=== PATIENT | male | born 1935 | race Caucasian/White ===

== ENCOUNTER 2019-01-20 20:33 | Inpatient (IN) | payer MEDICARE, BC ==
[~2019-01-20] VITALS: Ht 177.8 cm; Wt 96.9 kg
[2019-01-22 13:05] VITALS: BP 132/63
== END 2019-01-22 17:18 | disposition home or self-care (01) | DRG 65 ==
LOC: ED 21:25 → EDIP 21:39 → 4WST 22:34 → DCLOUNGE 01-22 17:01
PROVIDERS: ADMIT Internal Medicine; ATTEND Internal Medicine
DX: I63.9 Cerebral infarction, unspecified (principal); G45.0 Vertebro-basilar artery syndrome; R26.89 Other abnormalities of gait and mobility; I35.0 Nonrheumatic aortic (valve) stenosis; R29.810 Facial weakness; Z82.3 Family history of stroke; Z87.891 Personal history of nicotine dependence
CPT/HCPCS: 36415; 70496; 70498; 70551; 80048; 80061; 85025; 93306; 99285; G0378; Q9967; 92523-GN; J7030

== ENCOUNTER 2019-01-26 09:17 | Emergency (ER) | payer MEDICARE, BC ==
[~2019-01-26] VITALS: Ht 177.8 cm; Wt 87.4 kg
[2019-01-26 11:07] VITALS: BP 150/65
== END 2019-01-26 12:26 | disposition home or self-care (01) ==
LOC: ED 10:41
DX: I35.0 Nonrheumatic aortic (valve) stenosis (principal); Z86.73 Personal history of transient ischemic attack (TIA), and cerebral infarction without residual deficits; Z90.49 Acquired absence of other specified parts of digestive tract; Z87.891 Personal history of nicotine dependence; Z79.899 Other long term (current) drug therapy
CPT/HCPCS: 36415; 70450; 71045; 80053; 83880; 84484; 85025; 93005; 99284

== ENCOUNTER 2019-02-04 11:16 | Day surgery (SDC) | payer MEDICARE, BC ==
[~2019-02-04] VITALS: Ht 177.8 cm; Wt 86.0 kg
[~2019-02-04 11:16] MED LIST: ASPI81TA45 PO; ATOR40TA78 PO; SODIUM CHLORIDE 0.9% 1,000 ML IV SCH
[2019-02-04 12:37] VITALS: BP 147/77
[2019-02-04] MEDS ORDERED: VERAPAMIL 2.5 MG/ML, 2ML ONE (14:07)
[2019-02-04] MEDS ORDERED: FENTANYL PF 100 MCG/2ML ONE (14:07)
[2019-02-04] MEDS ORDERED: LIDOCAINE 1%, 20ML ONE (14:07)
[2019-02-04] MEDS ORDERED: MIDAZOLAM 1 MG/ML, 2ML ONE (14:07)
[2019-02-04] MEDS ORDERED: HEPARIN 1,000 UNITS/ML, 10ML ONE (14:07)
[2019-02-04] MEDS ORDERED: SODIUM CHLORIDE 0.9% 1,000 ML IV SCH (15:05)
[2019-03-11] MEDS ORDERED: TICA90TA PO (08:26)
[2019-03-11] MEDS ORDERED: METO25TA2 PO (08:26)
== END 2019-02-04 16:46 | disposition home or self-care (01) ==
LOC: CACL 11:16
PROVIDERS: ATTEND Internal Medicine Cardiovascular Disease
DX: I25.10 Atherosclerotic heart disease of native coronary artery without angina pectoris (principal); I10 Essential (primary) hypertension; I35.0 Nonrheumatic aortic (valve) stenosis; Z86.73 Personal history of transient ischemic attack (TIA), and cerebral infarction without residual deficits; Z79.82 Long term (current) use of aspirin; Z87.891 Personal history of nicotine dependence
CPT/HCPCS: 92978; 93454; 99156; 99157; C1753; C1769; C1887; J1644; J2250; J3010; Q9967

== ENCOUNTER 2019-03-23 09:14 | Inpatient (IN) | payer MEDICARE, BC ==
[~2019-03-23] VITALS: Ht 177.8 cm; Wt 88.3 kg
[~2019-03-23 09:14] MED LIST changes: +CHLORHEXIDINE 15 ML UDC ONE; +METO25TA2 PO; -SODIUM CHLORIDE 0.9% 1,000 ML IV SCH; +TICA90TA PO
[2019-03-23] MEDS ORDERED: SODIUM CHLORIDE 0.9% 1,000 ML IV ONE (09:37)
[2019-03-23 09:47] VITALS: BP 179/86
[2019-03-23] MEDS ORDERED: ONDANSETRON 2MG/ML, 2ML IVPush PRN ×2 (10:00→12:30)
[2019-03-23] MEDS ORDERED: CHLORHEXIDINE 15 ML UDC MM PRN (10:00)
[2019-03-23 10:24] LABS: BASOPHILS # (AUTO) 0.02 x10^3/uL (0-0.1); BASOPHILS % (AUTO) 0 % (0-1); EOSINOPHILS # (AUTO) 0.13 x10^3/uL (0-0.4); EOSINOPHILS % (AUTO) 2 % (1-7); LYMPHOCYTES # (AUTO) 1.21 x10^3/uL (1-3.4); LYMPHOCYTES % (AUTO) 18 % (22-44); MD NO; MEAN CORPUSCULAR HEMOGLOBIN 31.4 pg (27.5-34.5); MEAN CORPUSCULAR HGB CONC 33.6 g/dL (33.2-36.2); MEAN CORPUSCULAR VOLUME 93.4 fL (81-97); MEAN PLATELET VOLUME 7.6 fL (7.4-10.4); MONOCYTES # (AUTO) 0.45 x10^3/uL (0.2-0.8); MONOCYTES % (AUTO) 7 % (2-9); NEUTROPHILS # (AUTO) 4.86 x10^3/uL (1.8-6.8); NEUTROPHILS % (AUTO) 73 % (42-75); PLATELET COUNT 203 x10^3/uL (130-400); RED CELL DISTRIBUTION WIDTH 13.9 % (9.4-14.8)
[2019-03-23 10:32] LABS: INTERNATIONAL NORMALIZED RATIO 1.14 (0.93-1.1); PROTHROMBIN TIME 11.9 Seconds (9.6-11.5)
[2019-03-23 10:35] LABS: ANION GAP 3 mmol/L (5-15); CALCIUM 9.4 mg/dL (8.5-10.1); CHLORIDE 109 mmol/L (98-107)
[2019-03-23 10:41] LABS: CREATININE 1.09 mg/dL (0.7-1.3)
[2019-03-23 10:42] LABS: ALANINE AMINOTRANSFERASE 26 U/L (12-78); ALKALINE PHOSPHATASE 62 U/L (45-117); BILIRUBIN,TOTAL 1.1 mg/dL (0.2-1.0); TOTAL PROTEIN 7.5 g/dL (6.4-8.2)
[2019-03-23] MEDS ORDERED: FENTANYL PF 250 MCG/5ML ONE (11:08)
[2019-03-23] MEDS ORDERED: CEFAZOLIN 1,000 MG ONE (11:19)
[2019-03-23] MEDS ORDERED: DEXAMETHASONE 4 MG/ML, 1ML ONE ×2 (11:19)
[2019-03-23] MEDS ORDERED: PROTAMINE SULFATE 10 MG/ML, 25ML ONE (11:19)
[2019-03-23] MEDS ORDERED: SUCCINYLCHOLINE 20 MG/ML, 10ML ONE (11:44)
[2019-03-23] MEDS ORDERED: ROCURONIUM 10MG/ML,5ML ONE (11:45)
[2019-03-23] MEDS ORDERED: HEPARIN 1,000 UNITS/ML, 10ML ONE (11:45)
[2019-03-23] MEDS ORDERED: PROPOFOL 10 MG/ML, 20ML ONE (11:45)
[2019-03-23] MEDS ORDERED: PHENYLEPHRINE 10 MG/ML ONE (11:45)
[2019-03-23] MEDS ORDERED: ONDANSETRON 2MG/ML, 2ML ONE ×2 (12:18)
[2019-03-23] MEDS ORDERED: hydrALAzine 20 MG/ML, 1ML IVPush PRN (12:30)
[2019-03-23] MEDS ORDERED: ACETAMINOPHEN 325 MG TABLET PO PRN (12:30)
[2019-03-23] MEDS ORDERED: HYDROcodone/APAP 5/325 TABLET PO PRN (12:30)
[2019-03-23] MEDS ORDERED: LABETALOL 20 MG/4 ML IVPush PRN (12:30)
[2019-03-23 14:00] VITALS: BP 127/66
[2019-03-23] MEDS: TICAGRELOR 90 MG TABLET PO SCH (20:25)
[2019-03-23 20:26] VITALS: BP 116/70
[2019-03-23] MEDS ORDERED: METOPROLOL SUCCINATE 25 MG TAB.ER.24H PO SCH (21:00)
[2019-03-23] MEDS ORDERED: ATORVASTATIN 40 MG TABLET PO SCH (21:00)
[2019-03-24 02:00] VITALS: BP 93/56
[2019-03-24 04:13] LABS: BASOPHILS % (AUTO) 0 % (0-1); EOSINOPHILS # (AUTO) 0.22 x10^3/uL (0-0.4); EOSINOPHILS % (AUTO) 2 % (1-7); LYMPHOCYTES # (AUTO) 0.77 x10^3/uL (1-3.4); LYMPHOCYTES % (AUTO) 5 % (22-44); MD NO; MEAN CORPUSCULAR HEMOGLOBIN 31.4 pg (27.5-34.5); MEAN CORPUSCULAR HGB CONC 33.2 g/dL (33.2-36.2); MEAN CORPUSCULAR VOLUME 94.7 fL (81-97); MEAN PLATELET VOLUME 7.7 fL (7.4-10.4); MONOCYTES # (AUTO) 0.84 x10^3/uL (0.2-0.8); MONOCYTES % (AUTO) 6 % (2-9); NEUTROPHILS # (AUTO) 12.92 x10^3/uL (1.8-6.8); NEUTROPHILS % (AUTO) 88 % (42-75); PLATELET COUNT 191 x10^3/uL (130-400); RED BLOOD COUNT 4.73 x10^6/uL (4.38-5.82); RED CELL DISTRIBUTION WIDTH 13.5 % (9.4-14.8)
[2019-03-24 04:22] LABS: ANION GAP 7 mmol/L (5-15); CHLORIDE 109 mmol/L (98-107)
[2019-03-24] MEDS ORDERED: ASPIRIN 81 MG TABLET EC PO SCH (06:00)
[2019-03-24] MEDS: TICAGRELOR 90 MG TABLET PO SCH (08:17)
[2019-03-24 08:30] VITALS: BP 106/55
[2019-03-24 12:30] VITALS: BP 109/54
== END 2019-03-24 20:29 | disposition home or self-care (01) | DRG 266 ==
LOC: ORIP 09:14 → CCU 12:40
PROVIDERS: ADMIT Internal Medicine Cardiovascular Disease; ATTEND Internal Medicine Cardiovascular Disease
PROC: B3101ZZ Fluoroscopy of Thoracic Aorta using Low Osmolar Contrast (ICD-10-PCS; 2019-03-23)
PROC: B24BZZ4 Ultrasonography of Heart with Aorta, Transesophageal (ICD-10-PCS; 2019-03-23)
PROC: 03HY32Z Insertion of Monitoring Device into Upper Artery, Percutaneous Approach (ICD-10-PCS; 2019-03-23)
PROC: 02RF38Z Replacement of Aortic Valve with Zooplastic Tissue, Percutaneous Approach (ICD-10-PCS; principal; 2019-03-23 13:30)
DX: I08.0 Rheumatic disorders of both mitral and aortic valves (principal); Z00.6 Encounter for examination for normal comparison and control in clinical research program; I50.33 Acute on chronic diastolic (congestive) heart failure; D72.823 Leukemoid reaction; E04.1 Nontoxic single thyroid nodule; E78.5 Hyperlipidemia, unspecified; I11.0 Hypertensive heart disease with heart failure; I25.10 Atherosclerotic heart disease of native coronary artery without angina pectoris; R00.1 Bradycardia, unspecified; I44.7 Left bundle-branch block, unspecified; R04.0 Epistaxis; Z88.0 Allergy status to penicillin; Z79.82 Long term (current) use of aspirin; Z86.73 Personal history of transient ischemic attack (TIA), and cerebral infarction without residual deficits; Z95.5 Presence of coronary angioplasty implant and graft
CPT/HCPCS: 33361; 36415; 80048; 80053; 83880; 85025; 85347; 85610; 85730; 86850; 86900; 86923; 87081; 93005; 93306; 93312; 93321; 93325; 93355; 93591; C1760; C1769; C1894; G0378; J0690; J1100; J1644; J2405; J2704; J2720; J3010; J0330; J0360; J2370; J7030; Q9967

== ENCOUNTER 2019-04-20 09:20 | Outpatient (CLI) | payer MEDICARE, BC ==
[~2019-04-20 09:20] MED LIST changes: -CHLORHEXIDINE 15 ML UDC ONE
== END 2019-04-20 23:59 | disposition home or self-care (01) ==
LOC: CVU 09:20
PROVIDERS: ATTEND Internal Medicine Cardiovascular Disease
DX: I34.0 Nonrheumatic mitral (valve) insufficiency (principal); Z85.828 Personal history of other malignant neoplasm of skin; Z87.891 Personal history of nicotine dependence
CPT/HCPCS: 93306